=== PATIENT | female | born 1995 | race Caucasian/White ===

== ENCOUNTER 2018-10-21 08:26 | Emergency (ER) | payer SELFPAY ==
[~2018-10-21] VITALS: Ht 160 cm; Wt 71.0 kg
[2018-10-21 08:34] VITALS: BP 132/64
[2018-10-21 11:54] LABS: CLARITY URINE CLOUDY (CLEAR); KETONES URINE TRACE (NEGATIVE); LEUKOCYTE ESTERASE URINE 2+ (NEGATIVE); NITRITE URINE NEGATIVE (NEGATIVE); OCCULT BLOOD URINE 3+ (NEGATIVE); PH URINE 6.5 (4.5-8.0); PROTEIN URINE 1+ (NEGATIVE); SPECIFIC GRAVITY URINE 1.022 (1.005-1.030)
[2018-10-21 11:56] LABS: COLOR URINE BLOODY (YELLOW)
== END 2018-10-21 13:31 | disposition left against medical advice (07) ==
LOC: ER 12:39
DX: N39.0 Urinary tract infection, site not specified (principal); N92.6 Irregular menstruation, unspecified
CPT/HCPCS: 81025; 99283